=== PATIENT | female | born 1970 | race American Indian/Alaskan Native ===

== ENCOUNTER 2016-07-06 08:42 | Outpatient (CLI) | payer BC ==
--- NOTE | 2016-07-07 11:49 | Mammography Report ---
BILATERAL DIGITAL SCREENING MAMMOGRAM with CAD: 07/06/16 08:42:00 CLINICAL: Routine screening. COMPARISON:08/25/14 FINDINGS: The breasts are heterogeneously dense, which may obscure small masses. No mass, architectural distortion or suspicious calcifications. IMPRESSION: No mammographic evidence of malignancy. BI-RADS CATEGORY: 1 - - Negative RECOMMENDATION: Routine mammographic screening in one year. COMMENT: Patient follow-up letters are generated by our [employer] application. The
== END 2016-07-06 08:43 | disposition home or self-care (01) ==
LOC: SPVWC 08:42
PROVIDERS: ATTEND Internal Medicine
DX: Z12.31 Encounter for screening mammogram for malignant neoplasm of breast (principal)
CPT/HCPCS: 77067; G0202

== ENCOUNTER 2017-05-10 07:05 | Day surgery (SDC) | payer BC ==
[2017-05-04 11:16] LABS: Basophils % (Auto) 1.3 % (0.0-1.8); Eosinophils # (Auto) 0.1 K/mm3 (0.0-0.4); Eosinophils % (Auto) 1.8 % (0.0-4.3); Hematocrit 38.3 % (30.3-42.9); Hemoglobin 12.2 gm/dl (10.1-14.3); Lymphocytes # (Auto) 1.7 K/mm3 (1.2-5.4); Lymphocytes % (Auto) 51.8 % (13.4-35.0); Mean Corpuscular HGB Conc 32 % (30-34); Mean Corpuscular Volume 71 fl (79-97); Monocytes # (Auto) 0.3 K/mm3 (0.0-0.8); Monocytes % (Auto) 7.7 % (0.0-7.3); Platelet Count 154 K/mm3 (140-440); Red Blood Count 5.41 M/mm3 (3.65-5.03); Red Cell Distribution Width 15.9 % (13.2-15.2)
[2017-05-04 11:17] LABS: Mean Corpuscular Hemoglobin 23 pg (28-32)
--- NOTE | 2017-05-09 13:20 | History and Physical Report ---
History of Present Illness Date of examination: 05/04/17 History of present illness: This is a 46 years old female who presents with menstrual disorder. She complains of irregular menses, mid-cycle spotting and heavy bleeding, but denies lack of menses, dysmenorrhea, clotting, history of ovarian cysts, history of thyroid disease, history of fibroids, history of PCOS, history of bleeding disorder, lightheadedness, fatigue and cramping. Interval between menses is 10-14 days. Menstrual flow lasts 3 days and > 7 days. Patient's work up has included hysterosonogram which revealed an intracavity mass. Patient 's symptoms when present disrupts her normal daily activities Patient desires definitive treatment Patient has been reassessed/reevaluated. H&P has been reviewed. No interval changes. Vital Signs: Patient Profile: 46 Years Old Female Height: 65 inches (165.10 cm) Weight: 180 pounds (81.82 kg) BMI: 29.95 BSA: 1.89 Past History : 4 Term Births: 3 Premature Births: 0 Living Children: 3 Para: 3 Mult. Births: 0 Prev : 2 Prev. attempt? 0 Aborta: 1 Elect. Ab: 1 Spont. Ab: 0 Ectopics: 0 # 1 Delivery date: 12/05/1988 Weeks Gestation: 40 labor: yes Delivery type: Hours of labor: 12 Anesthesia type: none Delivery location: [place] Sex: Female weight: 7-14 Name: brittany # 2 Delivery date: 10/03/1993 Weeks Gestation: 41 labor: no Delivery type: Hours of labor: 24 Anesthesia type: none Delivery location: [place] Infant Sex: Female weight: 6-14 Name: anna marie Comments: Induction post dates # 3 Delivery date: 01/02/1999 Weeks Gestation: 41 labor: no Delivery type: Hours of labor: 5 Anesthesia type: none Delivery location: [facility] Sex: girl weight: 11-5 Name: Fang # 4 Delivery date: 04/26/2013 Weeks Gestation: 13 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 of genital herpes: yes Partner hx. of genital herpes: yes Rash/viral illness since LMP: no Hx of STD: HSV Current Allergies (reviewed today): No known allergies Past Medical History: Anemia Hypertension Reflex sympathetic dystrophy (2016) Past Surgical History: Tonsillectomy D&C: Tubal Ligation (11/12/2013) Essure (1993) (1998) Family History Summary: General Comments - FH: HTN father CA sister breast dx at 40 survivor Family History of Coronary Heart Disease Family History of Diabetes No Family History of Cervical Cancer No Family History of Colon Cancer No Family History of Ovarvian Cancer No Family History of DVT/PE on OCP Social History: Reviewed history from 04/22/2013 and no changes required: Patient is Educator Risk Factors: Smoked Tobacco Use: Never smoker Smokeless Tobacco Use: Never Passive smoke exposure: no Drug use: no HIV high-risk behavior: no Alcohol use: no Exercise: yes Seatbelt use: 100 % Review of Systems General Denies fever, chills, sweats, anorexia, fatigue, weakness, malaise, weight loss and sleep disorder. Complains of menorrhagia, pelvic pain and painful periods. Denies vaginal discharge, incontinence, dysuria, hematuria, urinary frequency, amenorrhea, abnormal vaginal bleeding, genital sores, decreased libido, painful sex, urinary urgency, hot flashes, vaginal dryness, vaginal itching and vaginal odor. CV Denies chest pains, palpitations, syncope, dyspnea on exertion, orthopnea, PND and peripheral edema. Resp Denies cough, dyspnea at rest, excessive sputum, hemoptysis, wheezing and pleurisy. GI Denies nausea, vomiting, diarrhea, constipation, change in bowel habits, abdominal pain, melena, hematochezia, jaundice, gas/bloating, indigestion/ heartburn, dysphagia and odynophagia. Breast Denies left breast lump, right breast lump, nipple discharge, bloody discharge from nipple, breast pain, abnormal mammogram and breast enlargement. Psych Denies depression, anxiety, irritability and mood swings. Past History Past Medical History: other (See HPI) Past Surgical History: Other (See HPI) Social history: other (See HPI) Family history: other (See HPI) Medications and Allergies Allergies Allergy/AdvReac Type Severity Reaction Status Date / Time No Known Allergies Allergy Unverified 05/03/17 17:11 Home Medications Medication Instructions Recorded Confirmed Last Taken Type Ferrous Gluconate [Iron] 85 mg PO DAILY 05/04/17 05/04/17 Unknown History Losartan Potassium [Losartan 100 mg PO DAILY 05/04/17 05/04/17 Unknown History Potassium] amLODIPine [Norvasc] 5 mg PO DAILY 05/04/17 05/04/17 Unknown History Review of Systems Constitutional: other (See HPI) Exam - Physical Exam Narrative exam: HEENT: normocephalic, no lesions or deformities Neck/Thyroid: supple, thyroid normal Skin warm dry no rashes Chest: respiratory effort normal, clear to auscultation Breasts: skin/areolae normal, no masses, no nipple discharge, no erythema/warmth /tenderness, and axillae normal. 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 No evidence of cystocele or rectocele. blood in vault Cervix: normal appearance, no lesions, no discharge no CMT Uterus: normal size and position, midline, mobile Adnexae: no masses or tenderness Rectovaginal: exam defered - Constitutional Vitals: Temp Pulse Resp BP Pulse Ox 98.7 F 60 16 138/84 05/04/17 11:13 05/04/17 11:13 05/04/17 11:13 05/04/17 11:13 Results - Labs CBC & Chem 7: 05/04/17 Unknown Assessment and Plan - Patient Problems (1) Endometrial mass Current Visit: Yes Status: Acute Plan to address problem: Diagnosis explained to patient . Questions answered. Patient desires definitive treatment Patient desires the least invasive procedure.Patient desires to retain future fertility. She desires myomectomy Discussed risk of surgery including infection, bleeding and risk of perforating her uterus. Questions answered. Patient understands and desires to proceed (2) Menometrorrhagia Current Visit: Yes Status: Acute Plan to address problem: Probably secondary to # 1 (3) Hypertension Current Visit: Yes Status: Acute Qualifiers: Hypertension type: essential hypertension Qualified Code(s): I10 - Essential (primary) hypertension
[~2017-05-10 07:05] MED LIST: LACTATED RINGERS 1,000 ML IV SCH; SILVER NITRATE TP ONE
[2017-05-10] MEDS ORDERED: MORPHINE IV PRN (07:53)
[2017-05-10] MEDS ORDERED: ZOFRAN IV PRN (07:53)
[2017-05-10] MEDS ORDERED: PERCOCET 5/325 PO PRN (07:53)
[2017-05-10] MEDS ORDERED: PEPCID PO NR (08:00)
[2017-05-10] MEDS ORDERED: VERSED IV NR (08:00)
--- NOTE | 2017-05-10 08:41 | Anesthesia Consultation ---
Anesthesia Consult and Med Hx Date of service: 05/10/17 - Airway Anesthetic Teeth Evaluation: Good ROM Head & Neck: Adequate Mental/Hyoid Distance: Adequate Mallampati Class: Class II Intubation Access Assessment: Good - Pulmonary Exam CTA: Yes - Cardiac Exam Cardiac Exam: No Murmur - Pre-Operative Health Status ASA Pre-Surgery Classification: ASA2 Proposed Anesthetic Plan: General - Cardiovascular System Hx Hypertension: Yes (over 5 yrs) - Central Nervous System Hx Back Pain: Yes (Had a lumbar block 2 weeks ago) Hx Psychiatric Problems: No - Hematic Hx Anemia: Yes - Other Systems Hx Cancer: No
--- NOTE | 2017-05-10 08:42 | Anesthesia Day of Surgery ---
Anesthesia Day of Surgery - Day of Surgery Patient Examined: Yes Patient H&P Reviewed: Yes Patient is NPO: Yes
[2017-05-10] MEDS ORDERED: XYLOCAINE MPF 2% ONE (08:48)
[2017-05-10] MEDS ORDERED: DIPRIVAN 10 MG/ML IV ONE (08:48)
[2017-05-10] MEDS ORDERED: DILAUDID ONE (08:48)
[2017-05-10] MEDS ORDERED: DILAUDID IV ONE ×2 (09:00→09:30)
[2017-05-10] MEDS ORDERED: NACL 0.9% IR ONE (09:15)
[2017-05-10] MEDS ORDERED: ZOFRAN ONE (09:20)
[2017-05-10] MEDS ORDERED: SILVER NITRATE TP ONE (09:30)
[2017-05-10] MEDS ORDERED: ePHEDrine SULFATE ONE (09:30)
--- NOTE | 2017-05-10 09:37 | Operative Report ---
Operative Report Operative Report: Date of procedure: 05/10/2017 Pre-operative diagnosis: Endometrial mass with menorrhalgia Post-operative diagnosis: Same Procedure name(s): Operative hysteroscopy with MyoSure Surgeon: Jose Juan Wagoner MD Palletizer: KATHERINE Anesthesia: Gen. EBL: Minimal Complications: None Findings: Patient to massive posterior endometrial wall both tubal ostia seen Specimen(s): Uterine mass Procedure: Patient was brought into the operating room, where general anesthesia was induced without any difficulty. Patient was placed in dorsal lithotomy position. Prep and drape in the usual sterile manner. Timeout procedure was performed. The patient's bladder was emptied with a red rubber catheter. Speculum was placed in the vagina. Tenaculum was placed at 12:00 on the cervix. The cervical os was dilated to a 19 Amharic diameter. The hysteroscope was placed and the findings noted above. The MyoSure device was primed. The device was placed through the cervical os. The mass was then removed using the MyoSure. The mass was completely removed with no evidence of puncture on the uterine wall. All instruments were then removed. The patient was awakened in the operating room and accompanied to recovery room in good condition.
--- NOTE | 2017-05-10 09:42 | Short Stay Summary ---
Short Stay Documentation Date of service: 05/10/17 - History H&P: dictated Past Medical History: other (See HPI) Past Surgical History: Other (See HPI) Social history: other (See HPI) - Allergies and Medications Current Medications: Allergies No Known Allergies Allergy (Unverified 05/03/17 17:11) Home Medications Medication Instructions Recorded Confirmed Last Taken Type Ferrous Gluconate [Iron] 85 mg PO DAILY 05/04/17 05/10/17 05/09/17 History Losartan Potassium [Losartan 100 mg PO DAILY 05/04/17 05/04/17 05/10/17 06:30 History Potassium] amLODIPine [Norvasc] 5 mg PO DAILY 05/04/17 05/04/17 05/10/17 06:30 History Acetaminophen/Codeine [Tylenol #3] 1 tab PO Q4HR PRN #20 tablet 05/10/17 Unknown Rx Doxycycline [Vibramycin CAP] 100 mg PO Q12HR #14 capsule 05/10/17 Unknown Rx Ibuprofen [Motrin 800 MG tab] 800 mg PO Q6H PRN #30 tablet 05/10/17 Unknown Rx Active Medications Famotidine (Pepcid) 20 mg PO PREOP NR Stop: 05/10/17 10:00 Last Admin: 05/10/17 08:30 Dose: 20 mg Lactated Ringer's (Lactated Ringers) 1,000 mls @ 125 mls/hr IV DIRECT MARY Last Admin: 05/10/17 08:05 Dose: 125 mls/hr Midazolam HCl (Versed) 2 mg IV PREOP NR Stop: 05/10/17 23:59 Last Admin: 05/10/17 08:31 Dose: 2 mg Morphine Sulfate (Morphine) 2 mg IV Q10MIN PRN PRN Reason: Pain, Moderate (4-6) Stop: 05/10/17 12:00 Ondansetron HCl (Zofran) 4 mg IV ONCE PRN PRN Reason: Nausea And Vomiting Stop: 05/10/17 10:00 Oxycodone/Acetaminophen (Percocet 5/325) 1 tab PO ONCE PRN PRN Reason: Pain, Moderate (4-6) Stop: 05/10/17 10:00 - Brief post op/procedure progress note Date of procedure: 05/10/17 (see dictated operative note) - Hospital course Hospital course: Patient was admitted underwent the above him procedure without any complications. Patient will be discharged with follow-up in office in 1-2 weeks for postop check. - Disposition Condition at discharge: Good Disposition: DC-01 TO HOME OR SELFCARE - Discharge Diagnoses (1) Endometrial mass Status: Resolved (2) Menometrorrhagia Status: Acute (3) Hypertension Status: Acute Qualifiers: Hypertension type: essential hypertension Qualified Code(s): I10 - Essential (primary) hypertension Short Stay Discharge Plan Activity: advance as tolerated Diet: regular Additional Instructions: Patient call office for fever, chills, nausea, vomiting or pain not controlled by pain medicine Follow up with: NARDA PERDOMO MD [Primary Care Provider] - 7 Days Prescriptions: Ibuprofen [Motrin 800 MG tab] 800 mg PO Q6H PRN #30 tablet PRN Reason: Pain Acetaminophen/Codeine [Tylenol #3] 1 tab PO Q4HR PRN #20 tablet PRN Reason: Pain Doxycycline [Vibramycin CAP] 100 mg PO Q12HR #14 capsule
[2017-05-10] MEDS ORDERED: TYLENOL #3 PO PRN (11:00)
[2017-05-10 11:38] VITALS: BP 135/77
--- NOTE | 2017-05-10 13:29 | Post Anesthesia Evaluation ---
- Post Anesthesia Evaluation Patient Participated: Yes Airway Patent: Yes Stable Respiratory Function: Yes Nausea/Vomiting: No Temp > 96.8F: Yes Pain Manageable: Yes Adequeate Hydration: Yes Anesthesia Complications: No Block Receding Appropriately: Not Applicable Patient on Ventilator: No
== END 2017-05-10 12:10 | disposition home or self-care (01) ==
LOC: OR 07:05
PROVIDERS: ATTEND Obstetrics & Gynecology
DX: N85.8 Other specified noninflammatory disorders of uterus (principal); N92.1 Excessive and frequent menstruation with irregular cycle; I10 Essential (primary) hypertension; G90.50 Complex regional pain syndrome I, unspecified; Z79.899 Other long term (current) drug therapy; Z98.890 Other specified postprocedural states; Z98.51 Tubal ligation status
CPT/HCPCS: 36415; 58558; 84703; 85025; 88305; A4217; C1782; J1170; J2250; J2270; J2405; J2704; J7120